=== PATIENT | female | born 1995 | race Caucasian/White ===

== ENCOUNTER 2019-10-17 17:50 | Emergency (ER) | payer OTHER, SELFPAY ==
[2019-10-17 17:56] VITALS: BP 114/72; PULSE 76; RESP 20; TEMP 37; O2SAT 99
--- NOTE | 2019-10-17 18:07 | ED.GENADULT ---
HPI - General Adult General Chief complaint: Ear Stated complaint: ear pain Time Seen by Provider: 10/17/19 18:07 Source: patient and RN notes reviewed Mode of arrival: ambulatory Limitations: no limitations History of Present Illness HPI narrative: 24-year-old female presents with complaints of bilateral otalgia and itching, LT greater than RT for the past 2 days. Ibuprofen, 400mg last approximately at 17:00 and sweet oil drops this morning without relief. Increase pain with throbbing sensation over the last 24 hours. Denies drainage, decrease hearing, or tinnitus. Denies injury to ear. Denies rhinorrhea and nasal congestion. Denies cough or chest congestion. No high fevers or chills. Denies nausea, vomiting, and dizziness. The patient reports she have not been diagnosed with COVID-19. The patient reports she is not waiting for the results of a COVID-19 lab test. The patient reports she do not have fever, chills, weakness, fatigue, myalgia, or facial swelling. The patient reports she do not have a new or worsening cough or shortness of breath. Denies chest pain. The patient reports she do not have any rhinorrhea, congestion, sore throat, vomiting, abdominal pain, and diarrhea. Tolerating po intake well. Denies recent traveling. Denies concerns for COVID-19 or exposures been home since [id number] order except for essential household needs and return home. At this time, patient is not suspected of having COVID-19. Some parts of this dictation were generated by voice recognition software and may contain typographical and/or grammatical inaccuracies. Related Data Allergies Allergy/AdvReac Type Severity Reaction Status Date / Time No Known Allergies Allergy Verified 03/25/19 10:12 Review of Systems Review of Systems: Narrative: CONSTITUTIONAL: Denies fever, chills, sweats. EYES: Denies visual changes, redness, discharge. ENT: Denies sore throat, ear drainage, decrease hearing, rhinorrhea, congestion. Complains of bilateral otalgia and itching. CARDIOVASCULAR: Denies chest pain, palpitations, edema. RESPIRATORY: Denies dyspnea, wheezing, cough. GASTROINTESTINAL: Denies abdominal pain, nausea, vomiting, diarrhea. GENITOURINARY: Denies dysuria, hematuria, abnormal discharge. SKIN: Denies rash or itching. MUSCULOSKELETAL: Denies acute back pain, joint pain, or myalgia. NEUROLOGIC: Denies numbness or focal weakness. PSYCHIATRIC: Denies anxiety or depression. All systems reviewed & are unremarkable except as noted in HPI and below. [facility] Past Medical History Medical History (Updated 10/17/19 @ 19:48 by SIN Araujo) ACL tear LT Anxiety Brain tumor (benign) Depression Fibromyalgia Gestational diabetes Surgical History Surgical History (Updated 10/17/19 @ 19:40 by SIN Araujo) History of brain surgery Removal of benign brain tumor History of dental surgery History of repair of ACL LT History of thumb surgery RT thumb reconstruction Hx of appendectomy Family History Family History (Updated 10/17/19 @ 18:22 by SIN Araujo) Father Hypertension Mother Diabetes mellitus Grandparent Rheumatoid arthritis Social History Social History (Updated 10/17/19 @ 18:23 by SIN Araujo) Smoking status: Current every day smoker Tobacco type: e-cigarettes/vaping Additional smoking assessment comments: Stopped smoking cigarettes about 6 years ago Alcohol intake: current Substance use: current Substance use type: marijuana Living arrangements: with family Occupation/Education: unemployed Gender identity (if verbalized by the patient): Female Comments At time of signature, I have reviewed and agree with nursing past medical, surgical, social, and family history. Please see nursing chart for further information. There is no relevant family history pertinent to the presenting complaint. Exam Narrative: Exam Narrative: GENERAL: This is a well-
== END 2019-10-17 18:31 | disposition home or self-care (01) ==
PROVIDERS: Emergency Provider Nurse Practitioner Family
DX: H65.02 Acute serous otitis media, left ear (principal); H93.8X1 Other specified disorders of right ear; F17.290 Nicotine dependence, other tobacco product, uncomplicated
CPT/HCPCS: 99213; G0463

== ENCOUNTER 2020-06-01 10:42 | Emergency (ER) | payer OTHER, SELFPAY ==
[2020-06-01 11:00] VITALS: BP 120/80; PULSE 87; RESP 20; TEMP 36.6; O2SAT 98
--- NOTE | 2020-06-01 11:23 | ED.URI ---
HPI - URI/Sore Throat General Stated Complaint: cough runny nose and chest conges Source: patient Mode of arrival: ambulatory Limitations: no limitations History of Present Illness HPI Narrative: Patient is a 24-year-old female who presents complaining of cough and congestion x1 week. Patient's 2-year-old son has had same complaints x2 weeks. Patient reports positive for Covid in February. She denies shortness of breath at this time. She denies taking [id number] pain medications. She denies known Covid exposure. Related Data Home Medications Medication Instructions Recorded Confirmed No Home Medications 06/01/20 06/01/20 Allergies Allergy/AdvReac Type Severity Reaction Status Date / Time No Known Allergies Allergy Verified 06/01/20 11:24 Review of Systems Review of Systems: Narrative: CONSTITUTIONAL: Denies fever, chills, or sweats. EYES: Denies visual changes, redness, or discharge. ENT: Reports rhinorrhea, congestion, denies sore throat, or otalgia. CARDIOVASCULAR: Denies chest pain, palpitations, or edema. RESPIRATORY: Reports cough, denies dyspnea GASTROINTESTINAL: Denies abdominal pain, nausea, vomiting, or diarrhea. GENITOURINARY: Denies dysuria or hematuria. SKIN: Denies rash or itching. MUSCULOSKELETAL: Denies back pain, joint pain, or myalgia. NEUROLOGIC: Denies headache, numbness, dizziness, or weakness. PSYCHIATRIC: Denies anxiety or depression. [facility] Past Medical History Medical History ACL tear LT Anxiety Brain tumor (benign) Depression Fibromyalgia Gestational diabetes Surgical History Surgical History History of brain surgery Removal of benign brain tumor History of dental surgery History of repair of ACL LT History of thumb surgery RT thumb reconstruction Hx of appendectomy Family History Family History Father Hypertension Mother Diabetes mellitus Grandparent Rheumatoid arthritis Social History Social History Smoking status: Current every day smoker Tobacco type: e-cigarettes/vaping Additional smoking assessment comments: Stopped smoking cigarettes about 6 years ago Alcohol intake: current Substance use: current Substance use type: marijuana Gender identity (if verbalized by the patient): Female Comments At the time of signature, I have reviewed and agree with nursing past medical, surgical, social, and family history unless otherwise noted. Please see nursing chart for further information. There is no relevant family history pertinent to the presenting complaint. Exam Narrative: Exam Narrative: GENERAL: Well-appearing, well-nourished, and in no acute distress. HEAD: Normocephalic, atraumatic. EYES: EOMI. No redness or drainage. Conjunctiva are normal. ENT: Mucous membranes pink and moist. Throat normal. Uvula midline. CHEST: No respiratory distress. Clear to auscultation. HEART: Regular rate and rhythm. No murmur appreciated. EXTREMITIES: Normal range of motion. No edema. SKIN: Warm, dry, no rash. NEURO: No focal deficits. Alert and oriented x3. Gait steady. PSYCH: Normal affect. No signs of depression or anxiety. MDM - URI/Sore Throat MDM Narrative Medical decision making narrative: PCR Covid testing completed and sent at this time. Discussed with patient that she most likely has URI, however, it is unlikely that she has Covid as she had positive Covid in February. Discussed with with patient quarantine until results are received. Patient is stable for discharge home with outpatient follow-up as needed. Differential Diagnosis Differential diagnosis: Likely upper respiratory infection, viral infection, bronchitis and influenza Critical Care Time Critical Care Time Critical Care Time: No Discharge Plan Discharge
[2020-06-02 19:22] LABS: SARS-CoV-2 RNA PCR Negative
== END 2020-06-01 12:08 | disposition home or self-care (01) ==
PROVIDERS: Emergency Provider Nurse Practitioner
DX: J06.9 Acute upper respiratory infection, unspecified (principal); B34.9 Viral infection, unspecified; F17.200 Nicotine dependence, unspecified, uncomplicated; M79.7 Fibromyalgia; Z86.16 Personal history of COVID-19
CPT/HCPCS: 99213; C9803; G0463; U0003

== ENCOUNTER 2020-06-23 16:01 | Emergency (ER) | payer OTHER, SELFPAY ==
[2020-06-23 16:06] VITALS: BP 130/69; PULSE 101; RESP 14; TEMP 37.7; O2SAT 99
--- NOTE | 2020-06-23 16:12 | ED.URI ---
HPI - URI/Sore Throat General Chief Complaint: Upper Respiratory Infection Stated Complaint: sore throat cough ache Time Seen by Provider: 06/23/20 16:12 Source: patient and RN notes reviewed History of Present Illness HPI Narrative: Patient is a 24-year-old female who presents the urgent care with complaints of sore throat, nonproductive cough, body aches and chills. Patient states that she woke up with a bad sore throat 3 days ago and was unable to go to work today. Patient states the chills started yesterday but denies of any known fever. States that she was positive for Covid in February and has been having sinusitis-like symptoms since her Covid diagnosis. Patient states that she has been using ibuprofen. No other acute complaints. Denies of any known exposure to strep. No acute distress noted. Patient aware of the plan of care. Some parts of this dictation were generated by voice recognition software and may contain typographical and/or grammatical inaccuracies. Related Data Home Medications Medication Instructions Recorded Confirmed levonorgestrel [Mirena] 1 device INTRAUTERINE ONCE 06/23/20 06/23/20 Allergies Allergy/AdvReac Type Severity Reaction Status Date / Time No Known Allergies Allergy Verified 06/23/20 16:19 Review of Systems Review of Systems: Narrative: CONSTITUTIONAL: Reports of chills EYES: Denies visual changes, redness, or discharge. ENT: Reports of sore throat CARDIOVASCULAR: Denies chest pain, palpitations, or edema. RESPIRATORY: Reports of nonproductive cough without dyspnea GASTROINTESTINAL: Denies abdominal pain, nausea, vomiting, or diarrhea. GENITOURINARY: Denies dysuria or hematuria. SKIN: Denies rash or itching. MUSCULOSKELETAL: Denies back pain, joint pain. Reports of body aches NEUROLOGIC: Denies headache, numbness, or weakness. All other systems reviewed are negative, except as documented in HPI. [facility] Past Medical History Medical History ACL tear LT Anxiety Brain tumor (benign) Depression Fibromyalgia Gestational diabetes Surgical History Surgical History History of brain surgery Removal of benign brain tumor History of dental surgery History of repair of ACL LT History of thumb surgery RT thumb reconstruction Hx of appendectomy Family History Family History Father Hypertension Mother Diabetes mellitus Grandparent Rheumatoid arthritis Social History Social History Smoking status: Current every day smoker Tobacco type: e-cigarettes/vaping Additional smoking assessment comments: Stopped smoking cigarettes about 6 years ago Alcohol intake: current Substance use: current Substance use type: marijuana Gender identity (if verbalized by the patient): Female Comments At the time of my signature, I reviewed and agree with the nursing past medical, surgical, social, and family history. There is no relevant family history pertinent to the patient complaint. Exam Narrative: Exam Narrative: GENERAL: This is a well-nourished, well-developed patient, in no apparent distress. HEAD: normocephalic, atraumatic. EYES: PERRL. Sclera clear/white. Vision is grossly intact. EARS: External ears normal, auditory canals clear and without drainage, TMs normal without perforation. Hearing grossly intact. NOSE: External nose normal with no obvious nasal discharge, nares without redness, no rhinorrhea. THROAT: Mucous membranes moist, moderate erythema noted to posterior oropharynx with moderate bilateral tonsillar edema with exudate noted to the left. NECK: Neck supple, non-tender without lymphadenopathy CARDIOVASCULAR: Regular rate and rhythm without murmurs, gallops, or rubs. RESPIRATORY: Clear to auscultation. Breath sounds equal bilaterally. No wh
== END 2020-06-23 16:31 | disposition home or self-care (01) ==
PROVIDERS: Emergency Provider Nurse Practitioner Family
DX: J03.90 Acute tonsillitis, unspecified (principal); F17.200 Nicotine dependence, unspecified, uncomplicated; M79.7 Fibromyalgia; Z86.16 Personal history of COVID-19
CPT/HCPCS: 87081; 87880; 99213; G0463

== ENCOUNTER 2020-10-16 17:39 | Emergency (ER) | payer OTHER, SELFPAY ==
[2020-10-16 17:45] VITALS: BP 131/82; PULSE 84; RESP 14; TEMP 37.3; O2SAT 100
--- NOTE | 2020-10-16 17:46 | ED.URI ---
HPI - URI/Sore Throat General Chief Complaint: Upper Respiratory Infection Stated Complaint: Coughing, Congestion Time Seen by Provider: 10/16/20 17:55 Source: patient Mode of arrival: ambulatory Limitations: no limitations History of Present Illness HPI Narrative: Taylro Walker is a 25 yo female with a PMH of brain tumor, recent seizure, who comes to [facility] for treatment of sinus pressure cough that is productive and pain in her ears. Started yesterday and progressively worse, discomfort frequently. Denies fever but states his fatigue Had brain tumor at age 10 that was removed at [facility] last month at first grand mal seizure since the surgery and was seen at [facility] where she had an MRI and EEG. She states that the MRI looked normal and will follow up with neurology at the end of October Related Data Home Medications Medication Instructions Recorded Confirmed levonorgestrel [Mirena] 1 device INTRAUTERINE ONCE 06/23/20 10/16/20 epinephrine [Auvi-Q] 0.3 mg IM ONCE PRN 10/16/20 10/16/20 levetiracetam 500 mg PO BID 10/16/20 10/16/20 Allergies Allergy/AdvReac Type Severity Reaction Status Date / Time crab Allergy Swelling Verified 10/16/20 17:59 of Lip/Tongue/Throat Review of Systems Review of Systems: Narrative: CONSTITUTIONAL: Denies fever, chills, sweats. EYES: Denies visual changes, redness, discharge. ENT: has rhinorrhea, has congestion, sore throat, has bilateral otalgia. CARDIOVASCULAR: Denies chest pain, palpitations, edema. RESPIRATORY: Denies dyspnea, wheezing, cough GASTROINTESTINAL: Denies abdominal pain, nausea, vomiting, diarrhea. GENITOURINARY: Denies dysuria, hematuria, abnormal discharge SKIN: Denies rash or itching. NEUROLOGIC: Denies numbness, or focal weakness. PSYCHIATRIC: Denies anxiety or depression. [facility] Past Medical History Medical History ACL tear LT Anxiety Brain tumor (benign) Depression Fibromyalgia Gestational diabetes Seizure Surgical History Surgical History History of brain surgery Removal of benign brain tumor History of dental surgery History of repair of ACL LT History of thumb surgery RT thumb reconstruction Hx of appendectomy Family History Family History Father Hypertension Mother Diabetes mellitus Grandparent Rheumatoid arthritis Social History Social History (Updated 10/16/20 @ 18:06 by Celia Oakes CNP) Smoking status: Current every day smoker Tobacco type: cigarettes and e-cigarettes/vaping Additional smoking assessment comments: Restarted smoking cigarettes along with vaping Alcohol intake: former Substance use: current Substance use type: marijuana Gender identity (if verbalized by the patient): Female Comments At time of signature, I agree with nursing past medical, surgical, social and family history. There is no relevant family history pertinent to the presenting complaint. Exam Narrative: Exam Narrative: GENERAL: This is a well-nourished, well-developed patient, in mild distress. HEAD: normocephalic, atraumatic. EYES: Sclera clear/white. Vision is grossly intact. EARS: External ears normal, auditory canals erythema and with drainage, TMs difficult to visualize. Hearing grossly intact. NOSE: External nose normal without nasal discharge, nares without redness, no rhinorrhea. Tenderness in the frontal sinuses THROAT: Mucous membranes moist, posterior pharynx erythema. Has consistent dry cough NECK: Neck supple, non-tender CARDIOVASCULAR: Regular rate and rhythm without murmurs, gallops, or rubs. RESPIRATORY: Clear to auscultation. Breath sounds equal bilaterally. No wheezes, rales, or rhonchi. GASTROINTESTINAL: Abdomen soft, non-tender, SKIN: warm, intact with no suspicious lesions or rash, good texture and turgor. NEUR
[2020-10-16 18:01] VITALS: BP 131/82; PULSE 84; RESP 14; TEMP 37.3; O2SAT 100
== END 2020-10-16 18:18 | disposition home or self-care (01) ==
PROVIDERS: Emergency Provider Nurse Practitioner; PCP Family Medicine
DX: H66.003 Acute suppurative otitis media without spontaneous rupture of ear drum, bilateral (principal); J01.10 Acute frontal sinusitis, unspecified; M79.7 Fibromyalgia; F17.210 Nicotine dependence, cigarettes, uncomplicated; F17.290 Nicotine dependence, other tobacco product, uncomplicated
CPT/HCPCS: 99213; G0463